=== PATIENT | female | born 1960 | race Caucasian/White ===

== ENCOUNTER 2016-08-09 06:13 | Day surgery (SDC) | payer BC ==
--- NOTE | 2016-08-08 19:21 | HISTORY AND PHYSICAL ---
ADMITTED: 08/09/2016 HISTORY OF PRESENT ILLNESS: The patient is a pleasant 56-year-old female with a chief complaint of a painful right foot. States that it has progressively gotten worse. She was seeing a correspondence specialist at the [facility] and he suggested surgery. She sought a second opinion and we also suggested surgery and she would like us to move forward with the planned procedure. Stated that she is getting more pain in the big toe joint and it is difficult with shoe gear. MEDICAL/SURGICAL HISTORY: Past medical history: Includes a history of hypertension, elevated cholesterol, and some anxiety. No surgical history listed. PRIMARY CARE PROVIDER: Dr. Lang Calderón. MEDICATIONS: 1. Lisinopril 10 mg 1 by mouth daily. 2. Hydrochlorothiazide 25 mg tablet 1 by mouth daily. 3. Sertraline 100 mg tablet 1 by mouth daily. 4. Omeprazole 20 mg tablet 1 by mouth daily. 5. Atorvastatin 25 mg tablet 1 by mouth daily. ALLERGIES: 1. PAXIL. SOCIAL HISTORY: She is . Never smoked, drinks socially. FAMILY HISTORY: Diabetes, hypertension, Alzheimer and cancer. REVIEW OF SYSTEMS: Ten-point review of systems positive for some sciatica. PHYSICAL EXAMINATION: GENERAL: The patient is alert, oriented x3. HEENT: PERRLA. Normocephalic. HEART: Regular rate and rhythm. Regular S1 and S2. No murmurs or gallops. LUNGS: Respiration clear to auscultation. No wheezing, rhonchi, or rales. ABDOMEN: Soft, tender, nondistended. No palpable masses. EXTREMITIES: Lower extremity/Vascular: Dorsalis pedis, posterior tibial pulses are palpable at 2/4. Subpapillary venous plexus capillary refill within normal limits. Deep tendon reflexes, epicritic sensations are intact. Muscle strength dorsiflexion, plantarflexion, inverters, everters are 4/5. There is crepitus within the right first MTP with less than 20 degrees of dorsiflexion, palpable exostosis at the first MTP. LAB/IMAGING: Imaging: Reveals symmetric joint space narrowing and dorsal osteophyte formation , a slightly elevated and elongated first ray. IMPRESSION: 1. Hallux limitus rigidus grade 2. PLAN: The patient is scheduled for a cheilectomy of the right first metatarsal. Date of planned procedure is 08/09/2016. There are no contraindications to surgery at this time.
[~2016-08-09] VITALS: Ht 167.6 cm; Wt 96.8 kg
[~2016-08-09 06:13] MED LIST: ASPIRIN ADULT L81 M1 PO; ATORVASTATIN CA40 MG PO; CALCIUM W/D PO; COQ-10100 MG PO; HYDROCHLOROTHIA25 MG PO; IRON325 MG PO; LISINOPRIL10 MG PO; OMEPRAZOLE20 M1 PO; VITAMIN E200 UNIT PO; ZOLOFT50 MG PO
--- NOTE | 2016-08-09 08:37 | Provider's Discharge Care Plan ---
Problem, Goal, Plan Problem List 1. Hallux rigidus, right foot Goals: Improve function Instructions: Increase activity level
--- NOTE | 2016-08-09 08:37 | Provider's Discharge Care Plan ---
Problem, Goal, Plan Problem List 1. Hallux rigidus, right foot Goals: Improve function Instructions: Increase activity level
--- NOTE | 2016-08-09 09:18 | OPERATIVE REPORT ---
DATE OF SURGERY: 08/09/2016 SURGEON: Adrian Lopez DPM PREOPERATIVE DIAGNOSIS: 1. Hallux limitus, grade 2, right foot POSTOPERATIVE DIAGNOSIS: 1. Hallux limitus, grade 2, right foot PROCEDURE PERFORMED: 1. Cheilectomy, right first MTP HEMOSTASIS: Achieved by pneumatic ankle tourniquet inflated to 200 mmHg pressure. TOURNIQUET TIME: Total tourniquet time 33 minutes. ANESTHESIA: LMA general. MATERIALS: Used 3-0 and 4-0 Polysorb, 4-0 Biosyn. INJECTABLES: Injected 20 mL of 0.5% bupivacaine plain. COMPLICATIONS: None. CONDITION: The patient tolerated anesthesia and procedure well. INDICATIONS: The patient is a pleasant 56-year-old female with a chief complaint of a painful right first MTP. She states it is difficult with shoe gear. Toe is stiff. She would like to have it repaired. She understands the planned procedure. There are no contraindications at this time. SURGICAL TECHNIQUE: The patient was brought to the operating room and placed on the table in the supine position. General anesthetic was administered. A pneumatic tourniquet was then placed above the right ankle. The right lower extremity was then prepped and draped in normal sterile fashion. An intraoperative pause was carried out for positive identification, proper limb, and consent form verified and confirmed. Esmarch bandage was then utilized to exsanguinate the limb. The tourniquet was then inflated. Attention was directed to procedure #1. Cheilectomy, right first MTP. At this time, a dorsal linear incision was made medial to the extensor hallucis longus tendon, approximately 5 cm in length. It was deepened by sharp and blunt dissection. The long extensor tendon was visualized and retracted laterally. One pericapsular made down to bone. Capsule and periosteum were sharply dissected. The hypertrophied bone on the dorsal medial and lateral aspect of the first metatarsal was resected. Upon freeing, it was noted that 50% of the cartilaginous surface of the first metatarsal head was completely denuded down to subchondral bone. The metatarsal elevator was then utilized to free up adhering plantar sesamoids, and the 0.045 K-wire was then used to subchondrally drill the first metatarsal head to fenestrate the denuded area. The area was copiously lavaged and flushed. The capsule and periosteum were reapproximated with 3-0 Polysorb, subcutaneous with 4-0 and skin edges reapproximated in running fashion with 4-0 Biosyn. A local anesthetic was then delivered as previously described. A compressive dressing was applied. The tourniquet was released with reactive hyperemia and good digital perfusion. The patient tolerated anesthesia and procedure well with vital signs stable. While in recovery, the patient was placed in a postoperative boot. Prognosis is guarded. She will be discharged home in stable condition.
== END 2016-08-09 10:17 | disposition home or self-care (01) ==
LOC: OR SRH 06:13 → SCU SRH 06:15 → OR SRH 07:30
PROVIDERS: Podiatrist
PROC: 0QBN0ZZ Excision of Right Metatarsal, Open Approach (ICD-10-PCS; principal; 2016-08-09 07:30)
DX: M20.5X1 Other deformities of toe(s) (acquired), right foot (principal); I10 Essential (primary) hypertension
CPT/HCPCS: 29229; 29240; 50004; 60001; 70002; 80212; 80461; 80575; 83169; 83414; 84038; 84522; 90074; 90100; 95059